=== PATIENT | female | born 1940 | race Caucasian/White ===

== ENCOUNTER 2016-05-14 05:30 | Inpatient (IN) | payer OTHER ==
[~2016-05-14] VITALS: Ht 160 cm; Wt 103.4 kg
[~2016-05-14 05:30] MED LIST: ATEN50TA PO; FURO-150 PO; POTA10CA68 PO; VENL75CA PO
[2016-05-14] MEDS ORDERED: CEFAZOLIN SOD 2 GM in D5W 50 ML IV ONE (06:45)
[2016-05-14] MEDS ORDERED: TRANEXAMIC ACID 1,000 MG/10 ML VIAL IV ONE ×2 (07:15→14:00)
[2016-05-14] MEDS ORDERED: POLYMYXIN 500,000/BACIT.10,000 UNITS in NS IRR 1 L IR ONE (07:21)
[2016-05-14] MEDS ORDERED: LR 1,000 ML IV SCH (07:57)
[2016-05-14] MEDS ORDERED: ONDANSETRON HCL 4 MG/2 ML VIAL IVP PRN ×3 (08:00→09:30)
[2016-05-14] MEDS ORDERED: HYDROmorphone 2 MG/ML VIAL IVP PRN ×2 (08:00)
[2016-05-14] MEDS ORDERED: HYDROmorphone 1 MG INJ. 1 MG/ML AMPUL IVP PRN ×2 (08:00)
[2016-05-14] MEDS ORDERED: DIPHENHYDRAMINE INJ 50 MG/ML VIAL IVP PRN (08:00)
[2016-05-14] MEDS ORDERED: NALBUPHINE HCL 10 MG/ML AMP IVP PRN (08:00)
[2016-05-14] MEDS ORDERED: ROPIVACAINE 0.2% 100 ML ONE (09:21)
[2016-05-14] MEDS ORDERED: ACETAMINOPHEN 325 MG TABLET PO PRN (09:30)
[2016-05-14] MEDS ORDERED: PROMETHAZINE HCL 25 MG/ML AMP IVP PRN (09:30)
[2016-05-14] MEDS ORDERED: HYDROcodone/ACETAMIN 7.5-325 MG TAB PO PRN (09:30)
[2016-05-14] MEDS ORDERED: SENNOSIDES 8.6 MG TABLET PO PRN (09:30)
[2016-05-14] MEDS ORDERED: DIPHENHYDRAMINE HCL 50 MG CAPSULE PO PRN (09:30)
[2016-05-14] MEDS ORDERED: HYDROmorphone 1 MG INJ. 1 MG/ML AMPUL ONE ×2 (10:02→10:20)
[2016-05-14] MEDS: ROPIVACAINE 0.2% 100 ML INJ SCH ×2 (10:05→22:27)
[2016-05-14 11:03] VITALS: BP 148/75; PULSE 90; RESP 15; TEMP 96.8; O2SAT 93
--- NOTE | 2016-05-14 11:06 | NUR ---
ADMISSION NOTE Received patient from ER via kalyan, received report from Lavonne TABOR. Patient admitted with diagnosis of unilateral primary osteoarthritis. Patient oriented to hospital routine, call light, toileting and safety-patient verbalized understanding.
[2016-05-14 11:11] VITALS: BP 148/75; PULSE 90; RESP 16; TEMP 96.8; O2SAT 93
[2016-05-14] MEDS: CEFAZOLIN 1 GM IVPB PREMIX 50 ML IV SCH ×2 (12:00→20:38)
--- NOTE | 2016-05-14 12:04 | NUR ---
CONSULT P/O MED MANAGEMENT S/P [facility] DR LÓPEZ [phone] DR PEMBERTON BODY MAKER [facility]
[2016-05-14] MEDS ORDERED: Effexor 37.5 MG TAB PO ONE (12:15)
[2016-05-14] MEDS ORDERED: NALOXONE HCL 0.4 MG/ML AMP (NARCAN) IVP PRN (12:45)
--- NOTE | 2016-05-14 13:00 | NUR ---
LENS GRINDER APPRENTICE PUMP SET UP PER ORDERS AT THIS TIME.
[2016-05-14] MEDS ORDERED: ONDANSETRON HCL 4 MG/2 ML VIAL ONE (14:00)
[2016-05-14] MEDS ORDERED: KETOROLAC TROMETHAMINE 30 MG VIAL ONE (14:00)
[2016-05-14] MEDS ORDERED: VANCOMYCIN HCL 1000 MG/VIAL IV ONE (14:00)
[2016-05-14] MEDS ORDERED: LR 1,000 ML IV.SOLN IV ONE (14:00)
[2016-05-14] MEDS ORDERED: ROCURONIUM BROMIDE 10 MG/ML (ZEMURON) ONE (14:00)
[2016-05-14] MEDS ORDERED: NORMAL SALINE 10 ML VIAL ONE (14:00)
[2016-05-14] MEDS ORDERED: SEVOFLURANE 15 MIN GAS INH ONE (14:00)
[2016-05-14] MEDS ORDERED: fentaNYL CITRATE 250 MCG/5 ML AMP ONE (14:00)
[2016-05-14] MEDS ORDERED: NS 100 ML BAG IV ONE (14:00)
[2016-05-14] MEDS ORDERED: PROPOFOL 200MG/ 20ML VIAL (DIPRIVAN) IV ONE (14:00)
[2016-05-14] MEDS ORDERED: ROPIVACAINE 40 MG/20 ML AMP EP ONE (14:00)
[2016-05-14] MEDS ORDERED: COMMUNICATION ORDER XX ONE (14:30)
--- NOTE | 2016-05-14 15:00 | NUR ---
PATIENT SLEEPING AT THIS TIME. CHARGE NURSE CALL FOR VERIFICATION OF 4 HOUR LOCK OUT ON AIR DEFENSE ARTILLERY OFFICER PUMP WITH DOCTOR MD REY.
--- NOTE | 2016-05-14 17:00 | NUR ---
Patient rounds. Dinner tray passed by SOLOIST DANCER.
[2016-05-14 17:40] VITALS: BP 130/71; PULSE 92; RESP 18; TEMP 97.2; O2SAT 96
[2016-05-14] MEDS: RIVAROXABAN 10 MG TABLET PO SCH (17:45)
--- NOTE | 2016-05-14 19:20 | NUR ---
Handoff report prepared for noc nurse.
--- NOTE | 2016-05-14 19:30 | NUR ---
OPENING NOTES REPORT RECEIVED [facility]. PATIENT IS RESTING COMFORTABLY. IV IS PATENT AND FLUSHING WELL. PATIENT IS COOPERATIVE. PT NOTED THAT THIS IS HER SECOND KNEE REPLACEMENT SURGERY. CPM APPLIED TO LEFT KNEE. NO NOTED SIGNS OR SYMPTOMS OF DISTRESS. FAMILY AT BEDSIDE. SEMICONDUCTOR PACKAGES PLATEMAKER PUMP AND EPIDURAL ANESTHESIA PATENT AND RUNNING ACCORDING TO MEDICATION ORDERS. PATIENT STATES SHE IS IN LITTLE PAIN. PT EDUCATED ON USE OF SEMICONDUCTOR PACKAGES PLATEMAKER PUMP. PT VERBALIZED UNDERSTANDING. BED IN LOWEST POSITION, CALL LIGHT WITHIN REACH.
[2016-05-14 19:45] VITALS: BP 125/64; PULSE 92; RESP 20; TEMP 97.4; O2SAT 97
[2016-05-14] MEDS: CALCIUM 500 MG/TAB PO SCH (20:38)
[2016-05-14] MEDS: Effexor 37.5 MG TAB PO SCH (20:38)
[2016-05-14 20:59] LABS: IRON (SERUM) 52 mcg/dL (37-145); TOTAL IRON BIND. CAPACITY 306 ug/dL (250-450)
--- NOTE | 2016-05-14 21:00 | NUR ---
NOTES PATIENT IS RESTING COMFORTABLY. PATIENT UPDATED ON PLAN OF CARE. BED IN LOWEST POSITION, CALL LIGTH WITHIN REACH. WILL CONTINUE TO MONITOR.
--- NOTE | 2016-05-14 22:00 | NUR ---
CPM MACHINE REMOVED/INCENTIVE SPIROMETER CPM AMCHINE REMOVED, PT TOLERATED WELL. FOLDED PILLOW UNDER PT'S HEEL/ANKLE AREA. EDUCATED PT ON THE IMPORTANCE OF NOT HAVING THE PILLOW DIRECTLY UNDER THE KNEE. PT STATED SHE UNDERSTANDS. EDUCATED PT ON HOW TO USE INCENTIVE SPIROMETER AND THE IMPORTANCE OF USING IT. WATCHED PT USED INCENTIVE SPIROMETER AND CAN GO UP TO 1700. ALSO REMINDED PT SHE CAN COUGH AND DEEP BREATHE TO PREVENT DEVELOPMENT OF PNEUMONIA. PT PRACTICED IN FRONT OF ME. ALL NEEDS BEING MET.
--- NOTE | 2016-05-14 23:00 | NUR ---
NOTES PATIENT IS RESTING COMFORTABLE. NO SIGNS OR SYMPTOMS OF DISTRESS NOTED. BED IN LOWEST POSITION, CALL LIGHT WITHIN REACH. WILL CONTINUE TO MONITOR.
[2016-05-15 01:00] VITALS: BP 124/68; RESP 18; TEMP 98.6; O2SAT 98
--- NOTE | 2016-05-15 01:00 | NUR ---
NOTES PATIENT IS SLEEPING COMFORTABLY. NO SIGNS OR SYMPTOMS OF DISTRESS NOTED. DRAINAGE FROM HEMOVAC EMPTIED. BED IN LOWEST POSITION, CALL LIGHT WITHIN REACH. WILL CONTINUE TO MONITOR.
--- NOTE | 2016-05-15 03:00 | NUR ---
NOTES PATIENT IS SLEEPING COMFORTABLY. NO SIGNS OR SYMPTOMS OF DISTRESS NOTED. LEFT LEG SUPPORTED BY A PILLOW UNDER THE CALF, NOT UNDER THE KNEE. BED IN LOWEST POSITION, CALL LIGHT WITHIN REACH. WILL CONTINUE TO MONITOR
[2016-05-15] MEDS: CEFAZOLIN 1 GM IVPB PREMIX 50 ML IV SCH (04:09)
[2016-05-15 04:15] VITALS: BP 138/69; PULSE 84; RESP 18; TEMP 98.1; O2SAT 95
--- NOTE | 2016-05-15 05:00 | NUR ---
NOTES PATIENT IS SLEEPING COMFORTABLY. NO SIGNS OR SYMPTOMS OF DISTRESS NOTED. BED IN LOWEST POSITION, CALL LIGHT WITHIN REACH. WILL CONTINUE TO MONITOR
[2016-05-15 06:48] LABS: ALANINE AMINOTRANSFERASE 32 U/L (12-78); ALBUMIN 3.2 g/dL (3.4-4.8); ANION GAP 2 (5-15); ASPARTATE AMINOTRANSFERASE 26 U/L (10-37); CALCIUM 8.4 mg/dL (8.4-11.0); CHLORIDE 103 mmol/L (98-107); GLUCOSE 153 mg/dL (70-99); POTASSIUM 4.6 mmol/L (3.5-5.1); SODIUM SERUM 138 mmol/L (136-145); TOTAL BILIRUBIN 0.4 mg/dL (0.0-1.0); TOTAL PROTEIN, SERUM 5.8 g/dL (6.4-8.3); UREA NITROGEN, BLOOD 21 mg/dL (8-21)
[2016-05-15 06:49] LABS: BASOPHILS % (AUTO) 0.2 % (0.0-2.0); EOSINOPHILS % (AUTO) 0.1 % (0.0-4.0); HEMATOCRIT 35.4 % (36-48); HEMOGLOBIN 11.9 g/dL (12.0-16.0); LYMPHOCYTES # (AUTO) 1.2 K/uL (1.0-5.5); LYMPHOCYTES % (AUTO) 10.1 % (20.5-51.5); MEAN CORPUSCULAR HEMOGLOBIN 32 pg (27-31); MEAN CORPUSCULAR HGB CONC 34 % (32-36); MEAN CORPUSCULAR VOLUME 94 fL (79.0-98.0); MONOCYTES # (AUTO) 1.1 K/uL (0.0-1.0); MONOCYTES % (AUTO) 9.5 % (1.7-9.3); NEUTROPHILS # (AUTO) 9.7 K/uL (1.8-7.7); NEUTROPHILS % (AUTO) 80.1 % (40.0-70.0); PLATELET COUNT (AUTO) 166 K/uL (130-430); RED BLOOD CELL COUNT(AUTO) 3.75 MIL/uL (4.2-6.2); RED CELL DISTRIBUTION WIDTH 13.5 % (9.0-15.0)
--- NOTE | 2016-05-15 07:19 | NUR ---
CLOSING NOTES PATIENT IS SLEEPING COMFORTABLY. NO SIGNS OR SYMPTOMS OF DISTRESS NOTED. DRAINAGE FROM HEMOVAC EMPTIED. BED IN LOWEST POSITION, CALL LIGHT WITHIN REACH. WILL CONTINUE TO MONITOR
[2016-05-15 07:45] VITALS: BP 130/64; PULSE 81; RESP 18; TEMP 98; O2SAT 97
--- NOTE | 2016-05-15 08:30 | NUR ---
Patient rounds. Neurovascular checks. [facility] care ice refreshed.
--- NOTE | 2016-05-15 08:57 | NUR ---
Nutrition Update Jasmeet Scale 16 noted. Pt admitted for unilateral primary osteoarthritis, L knee. Diet: regular BMI: 40.4 kg/m2 RD to follow per nutrition care standards.
[2016-05-15] MEDS: ROPIVACAINE 0.2% 100 ML INJ SCH ×3 (08:59→20:59)
[2016-05-15] MEDS ORDERED: POTASSIUM CHLORIDE 10 MEQ PO SCH (09:00)
[2016-05-15] MEDS: FUROSEMIDE 20 MG TABLET PO SCH (09:49)
[2016-05-15] MEDS: POTASSIUM CHLORIDE 10 MEQ TAB.PRT.SR PO SCH (09:49)
[2016-05-15] MEDS: Effexor 37.5 MG TAB PO SCH ×2 (09:49→20:59)
[2016-05-15] MEDS: PANTOPRAZOLE SODIUM 40 MG TAB PO SCH (09:49)
[2016-05-15] MEDS: CALCIUM 500 MG/TAB PO SCH ×2 (09:49→20:59)
[2016-05-15] MEDS: ATENOLOL 50 MG TABLET (TENORMIN) PO SCH (09:50)
--- NOTE | 2016-05-15 10:02 | NUR ---
HCP/PA: Spoke with Xochitl regarding discharge planning order for PT, FWW, Commode, and CPM. Xochitl will work on requested items.
--- NOTE | 2016-05-15 10:30 | NUR ---
Patient ambulating with physical therapy approximately 20 yards.
[2016-05-15 11:54] VITALS: BP 120/70; PULSE 74; RESP 18; TEMP 97.3; O2SAT 97
--- NOTE | 2016-05-15 12:30 | NUR ---
Patient tolerated 100% of lunch.
--- NOTE | 2016-05-15 14:30 | NUR ---
Patient working with physical therapist at this time.
--- NOTE | 2016-05-15 16:20 | NUR ---
PHYSICAL THERAPY CO-SIGN The Physical Therapy Progress Notes documented by Undercover Agent have been reviewed. I CONCUR WITH AM AND PM CHIEF CLOTH FINISHING RANGE OPERATOR NOTE; CONT PER TX PLAN Reviewed/Co-Signed by: Chandni Slaughter PT Documentation Done by: GAUTAM DANGELO CHIEF CLOTH FINISHING RANGE OPERATOR Addendum: 05/16/16 at 1505 by Chandni Slaughter PT Amended: Links added.
--- NOTE | 2016-05-15 17:13 | NUR ---
Rounds to patient. PROM machine check. Battery plugged back in to socket. Machine functioning properly. Dilauded pump beeping. Initiated code and pressed start.
[2016-05-15 17:34] VITALS: BP 117/74; PULSE 71; RESP 18; TEMP 97.1; O2SAT 97
[2016-05-15] MEDS: RIVAROXABAN 10 MG TABLET PO SCH (17:47)
--- NOTE | 2016-05-15 18:53 | NUR ---
Handoff report to noc nurse. Needs met at this time.
--- NOTE | 2016-05-15 19:30 | NUR ---
OPENING NOTES RECEIVED REPORT FROM DAY SHIFT NURSE AT BEDSIDE. PATIENT IS RESTING COMFORTABLY. SETTINGS OF CPM ARE AT 60. IV LINES ARE PATENT. UTILITY AIRCREWMAN AND EPIDURAL ARE RUNNING. PLAN OF CARE WAS DISCUSSED WITH PATIENT. BED IS IN LOWEST POSITION, BED ALARM IS SET, CALL LIGHT IS WITHIN REACH. WILL CONTINUE TO MONITOR.
[2016-05-15 20:15] VITALS: BP 131/63; RESP 20; TEMP 99.4; O2SAT 95
--- NOTE | 2016-05-15 22:00 | NUR ---
CPM MACHINE REMOVED CPM MACHINE REMOVED, PT TOLERATED WELL. FOLDED A PILLOW IN HALF AND PLACED UNDER HEEL/ANKLE. REMINDED PT TO CALL FOR ASSISTANCE, PT STATED SHE WILL. BED IN LOW POSITION, CALL LIGHT WITHIN REACH, ALL NEEDS BEING MET.
--- NOTE | 2016-05-16 | NUR ---
NOTES PATIENT IS SLEEPING. NO SIGNS OR SYMPTOMS OF DISTRESS NOTED. BED IN LOWEST POSITION, BED ALARM ON, AND CALL LIGHT WITHIN REACH. WILL CONTINUE TO MONITOR.
[2016-05-16 00:32] VITALS: BP 142/81; PULSE 75; RESP 18; TEMP 99.7; O2SAT 97
--- NOTE | 2016-05-16 02:00 | NUR ---
NOTES PATIENT SLEEPING. NO VISIBLE SIGNS OF DISTRESS NOTED. CALL LIGHT WITHIN REACH, BED IN LOWEST POSITION, BED ALARM ON.
[2016-05-16 04:27] VITALS: BP 137/69; PULSE 83; RESP 17; TEMP 99; O2SAT 96
[2016-05-16 06:44] LABS: BASOPHILS % (AUTO) 0.5 % (0.0-2.0); EOSINOPHILS # (AUTO) 0.1 K/uL (0.0-0.4); EOSINOPHILS % (AUTO) 0.7 % (0.0-4.0); HEMATOCRIT 33.8 % (36-48); LYMPHOCYTES # (AUTO) 1.7 K/uL (1.0-5.5); LYMPHOCYTES % (AUTO) 17.2 % (20.5-51.5); MEAN CORPUSCULAR HEMOGLOBIN 31 pg (27-31); MEAN CORPUSCULAR HGB CONC 33 % (32-36); MEAN CORPUSCULAR VOLUME 95 fL (79.0-98.0); MONOCYTES # (AUTO) 1.1 K/uL (0.0-1.0); MONOCYTES % (AUTO) 10.8 % (1.7-9.3); NEUTROPHILS # (AUTO) 6.9 K/uL (1.8-7.7); NEUTROPHILS % (AUTO) 70.8 % (40.0-70.0); PLATELET COUNT (AUTO) 141 K/uL (130-430); RED BLOOD CELL COUNT(AUTO) 3.55 MIL/uL (4.2-6.2); RED CELL DISTRIBUTION WIDTH 13.2 % (9.0-15.0); WHITE BLOOD COUNT (AUTO) 9.8 K/uL (4.8-10.8)
--- NOTE | 2016-05-16 06:47 | NUR ---
CLOSING NOTES PATIENT IS SLEEPING COMFORTABLY. NO SIGNS OR SYMPTOMS OF DISTRESS NOTED. PATIENT WAS ABLE TO WIGGLE ALL TOES, PEDAL PULSES WERE PRESENT BILATERAL. ALL NEEDS WERE MET THROUGHOUT SHIFT. FALL PRECAUTIONS IN PLACE. BED ALARM ON, CALL LIGHT WITHIN REACH. WILL ENDORSE CARE TO DAY SHIFT NURSE.
[2016-05-16 06:50] LABS: ANION GAP 2 (5-15); CALCIUM 8.6 mg/dL (8.4-11.0); CHLORIDE 102 mmol/L (98-107); CREATININE 0.86 mg/dL (0.55-1.30); GLUCOSE 117 mg/dL (70-99); POTASSIUM 4.5 mmol/L (3.5-5.1); SODIUM SERUM 138 mmol/L (136-145); UREA NITROGEN, BLOOD 18 mg/dL (8-21)
--- NOTE | 2016-05-16 08:10 | NUR ---
Dr Keven wilson DC CLERK SPECIALIST, EDUARDO Christianson.
--- NOTE | 2016-05-16 08:20 | NUR ---
Dressing changed by dr Baca.
--- NOTE | 2016-05-16 08:49 | NUR ---
EDUARDO GAGNON REMOVED GAGNON PER MD ORDER.
--- NOTE | 2016-05-16 10:00 | NUR ---
RN ROUNDS OBSERVED DR SHELTON REMOVE FEM BLOCK. CATHETER TIP INTACT, THERE WAS LIGHT BLEEDING AND PRESSURE WAS APPLIED TO SOURCE FOR A FEW MINUTES UNTIL BLEEDING STOPPED. LEFT PT SITTING UP IN BED WITH BED IN LOWEST POSITION AND CALL LIGHT IN REACH.
[2016-05-16] MEDS: PANTOPRAZOLE SODIUM 40 MG TAB PO SCH (10:10)
[2016-05-16] MEDS: POTASSIUM CHLORIDE 10 MEQ TAB.PRT.SR PO SCH (10:11)
[2016-05-16] MEDS: Effexor 37.5 MG TAB PO SCH (10:12)
[2016-05-16] MEDS: CALCIUM 500 MG/TAB PO SCH (10:12)
[2016-05-16] MEDS: ATENOLOL 50 MG TABLET (TENORMIN) PO SCH (10:12)
[2016-05-16] MEDS: FUROSEMIDE 20 MG TABLET PO SCH (10:12)
[2016-05-16 10:17] VITALS: Ht 160 cm; Wt 103.4 kg
--- NOTE | 2016-05-16 11:50 | NUR ---
RN ROUNDS PT INFORMED OF DISCHARGE PLAN. PT COMPLAINED OF PAIN 08/18 AND NORCO WAS PROVIDED ORDERED PRN BY MD. PT RESTING IN BED. BED IN LOWEST POSITION AND CALL LIGHT WITHIN REACH
[2016-05-16 11:59] VITALS: BP 139/74; PULSE 82; RESP 18; TEMP 96.2; O2SAT 96
[2016-05-16] MEDS ORDERED: HYDR-3924 PO (12:25)
[2016-05-16] MEDS ORDERED: RIVA10TA PO (12:27)
[2016-05-16 12:47] VITALS: BP 140/68; PULSE 83; RESP 17; TEMP 99.4; O2SAT 94
--- NOTE | 2016-05-16 13:00 | NUR ---
DISCHARGE NOTES PROVIDED DISCHARGE EDUCATION AND PPWK, REMOVED PT ID BRACELET, DC IV, AND ASSISTED PT TO HER CAR WITH HER AND BELONGINGS
--- NOTE | 2016-05-16 15:22 | NUR ---
PHYSICAL THERAPY CO-SIGN The Physical Therapy Progress Notes documented by Banquet Set Up Person have been reviewed. I CONCUR W/FORENSIC PATHOLOGIST NOTE Reviewed/Co-Signed by: Chandni Slaughter PT Documentation Done by: MIRANDA CONRAD FORENSIC PATHOLOGIST Addendum: 05/16/16 at 1522 by Chandni Slaughter PT Amended: Links added.
--- NOTE | 2016-05-16 15:39 | NUR ---
Discharge Planning Documenting DME, outpatient services and home health arranged by Xochitl TIPTON with HCP/PA: CPM arranged with [facility] p [phone] f [phone] OP PT arranged with [facility], [id number], [place] [address], p [phone] f [phone] Home Health care arranged with [facility] p [phone] f [phone]
--- NOTE | 2016-05-17 12:08 | NUR ---
Discharge Follow Up Phone Call MARKETING TECHNOLOGY COORDINATOR phoned patient, . Patient stated she was doing "as expected". She is taking her medications as directed. [facility] has called and will visit today. [facility] called and will deliver the CPM today. Patient stated her OP PT is with [facility] [phone]. MARKETING TECHNOLOGY COORDINATOR verified with Xochitl TIPTON for PA. Patient has a follow up appointment with Dr Baca in two weeks. Patient stated she had no other questions or concerns. No further calls needed.
== END 2016-05-16 12:55 | disposition home health service (06) | DRG 470 ==
LOC: SMU 05:30 → STU 10:56
PROVIDERS: ADMIT Orthopaedic Surgery; ATTEND Orthopaedic Surgery
PROC: 3E0T3CZ (ICD-10-PCS; 2016-05-14)
PROC: 0SRD0J9 Replacement of Left Knee Joint with Synthetic Substitute, Cemented, Open Approach (ICD-10-PCS; principal; 2016-05-14 07:30)
DX: M17.12 Unilateral primary osteoarthritis, left knee (principal); E87.3 Alkalosis; Z96.651 Presence of right artificial knee joint; G89.18 Other acute postprocedural pain; I10 Essential (primary) hypertension; D64.9 Anemia, unspecified; F32.9 Major depressive disorder, single episode, unspecified; E83.51 Hypocalcemia; E78.2 Mixed hyperlipidemia
CPT/HCPCS: 36415; 80048; 80053; 83540-TC; 83550-TC; 85025; 87081; 88305; 88311; 97039; 97110-GP; 97116-GP; 97530-GP; C1713; C1776; J0690; J1170; J1885; J2405; J2704; J2795; J3010; J3370; J3490; J7040; J7060; J7120